=== PATIENT | female | born 1995 | race Two or more races ===

== ENCOUNTER 2016-08-11 00:37 | Emergency (ER) | payer OTHER ==
[2016-08-11 01:32] VITALS: BP 153/85
[2016-08-11] MEDS ORDERED: Ketorolac 60 MG/2 ML SDV IM ONE (01:55)
--- NOTE | 2016-08-11 02:01 | EDM.PDOC ---
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 states she has had pain for several days but has progressively gotten worse over the last couple it is exacerbated at the end of her shift denies any trauma Right Arm Pain Score (Numeric/FACES): 5 - Related Data Allergies Allergy/AdvReac Type Severity Reaction Status Date / Time Penicillins Allergy Cannot Verified 08/11/16 01:32 Remember Home Meds: Home Meds NK [No Known Home Meds] 08/11/16 [History] Past Medical History HEENT History: Reports: Impaired Vision Other HEENT History: tooth extractions Respiratory History: Reports: Asthma 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 Neurological History: Reports: Concussion Psychiatric History: Reports: Depression Dermatologic History: Reports: Other (See Below) Other Dermatologic History: tatoos - Past Surgical History GI Surgical History: Reports: Appendectomy Social & Family History - Tobacco Use Smoking Status *Q: Light Tobacco Smoker Years of Tobacco use: 9 Packs/Tins Daily: 0.5 Used Tobacco, but Quit: No Second Hand Smoke Exposure: Yes - Alcohol Use Days Per Week of Alcohol Use: 2 Number of Drinks Per Day: 7 Total Drinks Per Week: 14 - Recreational Drug Use Recreational Drug Use: No Review of Systems - Review of Systems Review Of Systems: See Below Constitutional: Reports: No Symptoms Respiratory: Reports: No Symptoms Cardiovascular: Reports: No Symptoms GI/Abdominal: Reports: No Symptoms Genitourinary: Reports: No Symptoms Musculoskeletal: Reports: Shoulder Pain, Arm Pain Neurological: Reports: Numbness, Tingling ED EXAM, GENERAL - Physical Exam Exam: See Below Free Text/Narrative:: examination of the right upper extremity appreciate any edema there is no erythema full range of motion of wrist elbow and shoulder she does complain of pain with movement of each joint both tanel's test, Phalen's test flick test are positive, radial pulses 2+ Exam Limited By: No Limitations (and) General Appearance: Alert (a), WD/WN, No Apparent Distress Course - Vital Signs Last Recorded V/S: Last Vital Signs Temp 97.0 F 08/11/16 01:30 Pulse 78 08/11/16 01:30 Resp 16 08/11/16 01:30 BP 153/85 H 08/11/16 01:30 Pulse Ox 95 08/11/16 01:30 - Orders/Labs/Meds Orders: Active Orders 24 hr Category Date Time Status Ketorolac [Toradol] Med 08/11/16 01:55 Once 60 mg IM ONETIME ONE DME for Discharge [COMM] Stat Oth 08/11/16 01:55 Ordered Departure - Departure Time of Disposition: 02:00 Disposition: Home, Self-Care 01 Condition: good Clinical Impression: Repetitive motion injury - Discharge Information Forms: ED Department Discharge Additional Instructions: continue to use nonsterile anti-inflammatories as needed, try the wrist splint for comfort, recommend followup with primary care for reevaluation - My Orders Last 24 Hours: My Active Orders 08/11/16 01:55 Ketorolac [Toradol] 60 mg IM ONETIME ONE DME for Discharge [COMM] Stat - Assessment/Plan Last 24 Hours: My Active Orders 08/11/16 01:55 Ketorolac [Toradol] 60 mg IM ONETIME ONE DME for Discharge [COMM] Stat Plan: Assessment Acuity = acute on chronic Site and laterality = repetitive motion injury Etiology = repetitive work Manifestations = wrist pain concern for development of carpal tunnel syndrome Location of injury = home Lab values = none Plan [she was provided Toradol injection and a wrist splint in the ED her followup with primary care for further evaluation Patient was in agreement with the plan all questions were answered, they were instructed to return to the emergency department or call for worsening symptoms. This note was dictated using [employer] voice recognition software please call with any questions.
== END 2016-08-11 02:20 | disposition home or self-care (01) ==
LOC: JP.ED 00:37
DX: S49.91XA Unspecified injury of right shoulder and upper arm, initial encounter (principal); S69.91XA Unspecified injury of right wrist, hand and finger(s), initial encounter; Z88.0 Allergy status to penicillin; F17.210 Nicotine dependence, cigarettes, uncomplicated; J45.909 Unspecified asthma, uncomplicated; Z90.89 Acquired absence of other organs; X50.3XXA Overexertion from repetitive movements, initial encounter; Y99.0 Civilian activity done for income or pay
CPT/HCPCS: 96372; 99283; J1885

== ENCOUNTER 2018-07-17 16:30 | Emergency (ER) | payer SELFPAY ==
[2018-07-17 17:22] VITALS: BP 132/73
[2018-07-17] MEDS ORDERED: Sodium Chloride 0.9% 1,000 ML IV SCH (18:15)
--- NOTE | 2018-07-17 18:26 | EDM.PDOC ---
ED HPI GENERAL MEDICAL PROBLEM - General Chief Complaint: Abdominal Pain Stated Complaint: LEFT SIDE ABDOMINAL PAIN Time Seen by Provider: 07/17/18 18:00 Source of Information: Reports: Patient, Family History Limitations: Reports: No Limitations - History of Present Illness INITIAL COMMENTS - FREE TEXT/NARRATIVE: 23-year-old female with a history of endometriosis and appendectomy, with laparoscopic procedures several times has had increasing and persistent upper abdominal discomfort especially central and left upper abdomen with a pressure sensation and pain on a continuous basis but worse after eating. She feels like there is a balloon or a mass expanding in the area. No radiation to the back, some nausea but no fever or chills. Some intermittent bowel changes, yesterday she had normal stools today diarrhea. She had an evaluation when it started 3 months ago and her workup was negative but it continues to worsen. She has tried Prilosec daily without effect. The pain is localized to the upper and left abdomen, does not migrate or radiate and is consistent. Onset: Gradual Duration: Chronic (Pain has been worsening for several months) Quality: Reports: Ache, Pressure Associated Symptoms: Reports: Malaise, Nausea/Vomiting. 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 (see below) (Daily omeprazole) Left Middle Abdomen Pain Score (Numeric/FACES): 6 - Related Data Allergies Allergy/AdvReac Type Severity Reaction Status Date / Time Penicillins Allergy Cannot Verified 04/10/18 13:25 Remember Home Meds: Home Meds Albuterol Sulfate [Proventil Hfa] 2 puff INH ASDIRECTED 04/10/18 [History] Omeprazole 20 mg PO DAILY 07/17/18 [History] Past Medical History HEENT History: Reports: Impaired Vision Other HEENT History: tooth extractions Respiratory History: Reports: Asthma [employer]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 Dermatologic History: Reports: Other (See Below) Other Dermatologic History: tatoos - Past Surgical History GI Surgical History: Reports: Appendectomy Female Surgical History: Reports: Other (See Below) Other Female Surgeries/Procedures: 2 laparoscopy for endometriosis Social & Family History - Tobacco Use Smoking Status *Q: Current Every Day Smoker Years of Tobacco use: 11 Packs/Tins Daily: 0.5 - Caffeine Use Caffeine Use: Reports: None - Recreational Drug Use Recreational Drug Use: Yes Drug Use in Last 12 Months: Yes Recreational Drug Type: Reports: Marijuana/Hashish Recreational Drug Use Frequency: Socially ED ROS GENERAL - Review of Systems Review Of Systems: See Below Constitutional: Reports: Malaise. Denies: Fever, Chills, Weight Loss HEENT: Reports: No Symptoms Respiratory: Denies: Shortness of Breath, Cough Cardiovascular: Denies: Chest Pain GI/Abdominal: Reports: Abdominal Pain, Constipation, Diarrhea, Nausea : Reports: No Symptoms Musculoskeletal: Reports: No Symptoms Neurological: Reports: No Symptoms Psychiatric: Reports: No Symptoms Free Text/Narrative/Comment: Long history of endometriosis, she finished Lupron shots last December ED EXAM, GI/ABD - Physical Exam Exam: See Below Exam Limited By: No Limitations General Appearance: Alert, No Apparent Distress, Other (Looks uncomfortable, tearful due to chronicity of the pain) Eyes: Bilateral: Normal Appearance (No jaundice) Throat/Mouth: Normal Inspection Head: Atraumatic, Normocephalic Respiratory/Chest: No Respiratory Distress, Lungs Clear Cardiovascular: Regular Rate, Rhythm GI/Abdominal Exam: Normal Bowel Sounds, Tender (Some tenderness to palpation across the upper abdomen, especially on the left but no significant rebound and just minimal guarding) Extremities: Normal Inspection. No: Pedal Edema Neurological: Alert, Oriented, No Motor/Sensory Deficits Skin Exam: Warm, Dry Course - Vital Signs Last Recorded V/S: Last Vital Signs Temp 97.3 F 07/17/18 17:27 Pulse 95 07/17/18 17:27 Resp 13 07/17/18 17:27 BP 132/73 07/17/18 17:27 Pulse Ox 96 07/17/18 17:27 - Orders/Labs/Meds Labs: Laboratory Tests 07/17/18 07/17/18 07/17/18 Range/Units 18:13 18:13 18:33 WBC 15.8 H (4.5-11.0) K/uL RBC 5.29 (3.30-5.50) M/uL Hgb 16.0 H (12.0-15.0) g/dL Hct 47.1 (36.0-48.0) % MCV 89 (80-98) fL MCH 30 (27-31) pg MCHC 34 (32-36) % Plt Count 272 (150-400) K/uL Neut % (Auto) 68 H (36-66) % Lymph % (Auto) 18 L (24-44) % Jefferson % (Auto) 8 H (2-6) % Eos % (Auto) 5 H (2-4) % Baso % (Auto) 1 (0-1) % Sodium 139 L (140-148) mmol/L Potassium 3.8 (3.6-5.2) mmol/L Chloride 104 (100-108) mmol/L Carbon Dioxide 25 (21-32) mmol/L Anion Gap 13.8 (5.0-14.0) mmol/L BUN 13 (7-18) mg/dL Creatinine 0.9 (0.6-1.0) mg/dL Est Cr Clr Drug Dosing 82.51 mL/min Estimated GFR (MDRD) > 60 (>60) Glucose 98 (74-106) mg/dL Calcium 9.1 (8.5-10.1) mg/dL Total Bilirubin 0.3 D (0.2-1.0) mg/dL AST 22 (15-37) U/L ALT 48 (12-78) U/L Alkaline Phosphatase 84 (46-116) U/L Total Protein 7.4 (6.4-8.2) g/dL Albumin 3.6 (3.4-5.0) g/dL Globulin 3.8 H (2.3-3.5) g/dL Albumin/Globulin Ratio 1.0 L (1.2-2.2) Amylase 40 (25-115) U/L Lipase 97 (73-393) U/L Urine Color Yellow Urine Appearance Cloudy Urine pH 7.0 (4.5-8.0) Ur Specific Gratz 1.015 (1.008-1.030) Urine Protein Negative (NEGATIVE) mg/dL Urine Glucose (UA) Normal (NEGATIVE) mg/dL Urine Ketones Negative (NEGATIVE) mg/dL Urine Occult Blood Trace (NEGATIVE) Urine Nitrite Negative (NEGATIVE) Urine Bilirubin Negative (NEGATIVE) Urine Urobilinogen Normal (NORMAL) mg/dL Ur Leukocyte Esterase Small (NEGATIVE) Urine RBC 0-5 (0-5) Urine WBC 5-10 H (0-5) Ur Epithelial Cells Few Amorphous Sediment Many Urine Bacteria Moderate Urine Mucus Not seen Urine HCG, Qual 07/17/18 Range/Units 18:33 WBC (4.5-11.0) K/uL RBC (3.30-5.50) M/uL Hgb (12.0-15.0) g/dL Hct (36.0-48.0) % MCV (80-98) fL MCH (27-31) pg MCHC (32-36) % Plt Count (150-400) K/uL Neut % (Auto) (36-66) % Lymph % (Auto) (24-44) % Jefferson % (Auto) (2-6) % Eos % (Auto) (2-4) % Baso % (Auto) (0-1) % Sodium (140-148) mmol/L Potassium (3.6-5.2) mmol/L Chloride (100-108) mmol/L Carbon Dioxide (21-32) mmol/L Anion Gap (5.0-14.0) mmol/L BUN (7-18) mg/dL Creatinine (0.6-1.0) mg/dL Est Cr Clr Drug Dosing mL/min Estimated GFR (MDRD) (>60) Glucose (74-106) mg/dL Calcium (8.5-10.1) mg/dL Total Bilirubin (0.2-1.0) mg/dL AST (15-37) U/L ALT (12-78) U/L Alkaline Phosphatase (46-116) U/L Total Protein (6.4-8.2) g/dL Albumin (3.4-5.0) g/dL Globulin (2.3-3.5) g/dL Albumin/Globulin Ratio (1.2-2.2) Amylase (25-115) U/L Lipase (73-393) U/L Urine Color Urine Appearance Urine pH (4.5-8.0) Ur Specific Gratz (1.008-1.030) Urine Protein (NEGATIVE) mg/dL Urine Glucose (UA) (NEGATIVE) mg/dL Urine Ketones (NEGATIVE) mg/dL Urine Occult Blood (NEGATIVE) Urine Nitrite (NEGATIVE) Urine Bilirubin (NEGATIVE) Urine Urobilinogen (NORMAL) mg/dL Ur Leukocyte Esterase (NEGATIVE) Urine RBC (0-5) Urine WBC (0-5) Ur Epithelial Cells Amorphous Sediment Urine Bacteria Urine Mucus Urine HCG, Qual Negative Meds: Medications Discontinued Medications Generic Name Dose Route Start Last Admin Trade Name Freq PRN Reason Stop Dose Admin Sodium Chloride 1,000 mls @ 150 mls/hr 07/17/18 18:15 07/17/18 18:39 Normal Saline IV 150 mls/hr ASDIRECTED CASSY Administration Sodium Chloride 80 mls @ 3 mls/sec 07/17/18 19:15 07/17/18 19:13 Normal Saline IV 3 mls/sec ASDIRECTED CASSY Administration Iopamidol 150 ml 07/17/18 19:15 07/17/18 19:13 Isovue-300 (61%) IV 150 ml . DIRECTED CASSY Administration Sodium Chloride 10 ml 07/17/18 19:04 07/17/18 19:13 Saline Flush FLUSH 10 ml ASDIRECTED PRN Administration Keep Vein Open - Re-Assessments/Exams Free Text/Narrative Re-Assessment/Exam: 07/17/18 18:26 CBC, CMP, amylase and lipase were obtained as well as a urine and urine . A CT with IV contrast will be obtained when labs returned, since most likely intermittent partial bowel obstruction or possibly a resurgence of her endometriosis 07/17/18 19:55 White blood cell count was mildly elevated at 15.8 but all other labs were reassuring. CT the abdomen was normal. 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 I discussed this with the patient and she was agreeable to this. She is going to try a nightly dose of naproxen, and contact Dr. Do in [place]. Departure - Departure Time of Disposition: 20:03 Disposition: Home, Self-Care 01 Condition: Good Clinical Impression: Abdominal pain Qualifiers: Abdominal location: upper abdomen, unspecified Qualified Code(s): R10.10 - Upper abdominal pain, unspecified - Discharge Information Instructions: Abdominal Pain, Adult Referrals: Kadi Alaniz CNM [Primary Care Provider] - Forms: ED Department Discharge Care Plan Goals: Continue your Prilosec, and consider an anti-inflammatory for the next several days, at least at bedtime to see if it will help pain. Call Dr. Do tomorrow to schedule a consultation regarding the discomfort as discussed.
[2018-07-17] MEDS ORDERED: Sodium Chloride 0.9% 10 ML Syringe FLUSH PRN (19:04)
[2018-07-17] MEDS ORDERED: Iopamidol 612 MG/ML 150 ML Bottle IV SCH (19:15)
[2018-07-17] MEDS ORDERED: Sodium Chloride 0.9% 80 ML IV SCH (19:15)
--- NOTE | 2018-07-17 19:46 | CRLCT ---
INDICATION: Upper abdominal pain x 3 months TECHNIQUE: CT abdomen and pelvis acquired with IV contrast. 150 cc Isovue-300 COMPARISON: 04/10/2018 FINDINGS: Lower chest: Unremarkable. Liver: Unremarkable. Spleen: Unremarkable. Pancreas: Unremarkable. Gallbladder and bile ducts: Unremarkable. Kidneys: Unremarkable. Adrenal glands: Unremarkable. GI tract: Unremarkable. Appendix is normal. Vascular structures: Unremarkable. Lymph nodes: Unremarkable. Miscellaneous: Unremarkable. No free air or significant free fluid. Pelvic Organs: Unremarkable. Bones: Unremarkable for age. IMPRESSION: Unremarkable CT of the abdomen and pelvis. No definitive findings to explain the patient`s upper abdominal pain. Dictated by Marin Aguilar MD @ 07/17/2018 7:44:52 PM Please note that all CT scans at this facility use dose modulation, iterative reconstruction, and/or weight-based dosing when appropriate to reduce radiation dose to as low as reasonably achievable. Dictated by: Marin Aguilar MD @ 07/17/2018 19:44:59 (Electronically Signed)
== END 2018-07-17 20:05 | disposition home or self-care (01) ==
LOC: JP.ED 16:30
DX: R10.12 Left upper quadrant pain (principal); F17.210 Nicotine dependence, cigarettes, uncomplicated; Z79.899 Other long term (current) drug therapy; Z88.0 Allergy status to penicillin
CPT/HCPCS: 36415; 74177; 80053; 81001; 81025; 82150; 83690; 85025; 96360; 99284; J7030

== ENCOUNTER 2023-10-28 17:02 | Emergency (ER) | payer BC ==
[2023-10-28 20:49] LABS: BASOPHILS ABSOLUTE AUTO 0.07 K/uL (0.00-0.10); BASOPHILS PERCENT AUTO 0.6 % (0.1-1.3); EOSINOPHILS ABSOLUTE AUTO 0.27 K/uL (0.00-0.40); EOSINOPHILS PERCENT AUTO 2.2 % (0.0-5.4); HEMATOCRIT 41.4 % (34.3-46.0); HEMOGLOBIN 14.1 g/dL (11.2-15.5); IMMATURE GRAN ABSOLUTE AUTO 0.05 K/uL (0.00-0.23); IMMATURE GRAN PERCENT AUTO 0.4 % (0.0-0.7); LYMPHOCYTES ABSOLUTE AUTO 2.64 K/uL (0.8-3.3); LYMPHOCYTES PERCENT AUTO 21.2 % (11.4-47.7); MEAN CORPUSCULAR HEMOGLOBIN 29.8 pg (31.6-35.5); MEAN CORPUSCULAR HGB CONC 34.1 g/dL (31.6-35.5); MEAN CORPUSCULAR VOLUME 87.5 fL (81.4-99.0); MONOCYTES ABSOLUTE AUTO 0.85 K/uL (0.20-0.90); MONOCYTES PERCENT AUTO 6.8 % (3.3-12.6); NEUTROPHILS PERCENT AUTO 68.8 % (40.0-78.1); PLATELET COUNT,PLT 291 K/uL (130-375); RED BLOOD CELL COUNT 4.73 M/uL (3.77-5.24); WHITE BLOOD CELL COUNT,WBC 12.5 K/uL (3.2-11.0)
[2023-10-28 21:12] LABS: ALANINE AMINOTRANSFERASE,ALT 27 U/L (12-78); ALKALINE PHOSPHATASE 78 U/L (46-116); ANION GAP 11.1 mmol/L (5.0-14.0); ASPARTATE AMNIOTRANSFERASE,AST 16 U/L (15-37); BILIRUBIN TOTAL 0.6 mg/dL (0.2-1.0); BLOOD UREA NITROGEN,BUN 10 mg/dL (7-18); CALCIUM 8.8 mg/dL (8.5-10.1); CARBON DIOXIDE,CO2 30 mmol/L (21-32); CHLORIDE,CL 101 mmol/L (100-108); EST CRCL DRUG DOSING (CG) 75.51 mL/min; ESTIMATED GFR 78 mL/min (>60); GLUCOSE RANDOM 91 mg/dL (74-106); POTASSIUM,K 4.1 mmol/L (3.6-5.2); PROTEIN TOTAL,TP 8.2 g/dL (6.4-8.2); SODIUM,NA 138 mmol/L (140-148); TROPONIN I HIGH SENSITIVITY < 4.0 pg/mL (<=60.3)
[2023-10-28 21:45] VITALS: BP 121/72; PULSE 78
== END 2023-10-28 22:20 | disposition home or self-care (01) ==
LOC: JP.ED 17:02
DX: R00.2 Palpitations (principal); Z88.0 Allergy status to penicillin; Z79.890 Hormone replacement therapy; Z79.899 Other long term (current) drug therapy; Z90.49 Acquired absence of other specified parts of digestive tract; Z87.891 Personal history of nicotine dependence
CPT/HCPCS: 36415; 80053; 83605; 84484; 85025; 93005; 99285

== ENCOUNTER 2024-07-26 17:33 | Emergency (ER) | payer BC ==
[2024-07-26] MEDS ORDERED: Morphine 4 MG/ML Syringe IVPUSH PRN (18:15)
[2024-07-26] MEDS ORDERED: Sodium Chloride 0.9% 10 ML Syringe FLUSH PRN (18:15)
[2024-07-26] MEDS ORDERED: Nitroglycerin 0.4 MG Tab.SL SL PRN (18:15)
[2024-07-26 18:31] LABS: BASOPHILS ABSOLUTE AUTO 0.09 K/uL (0.00-0.10); BASOPHILS PERCENT AUTO 0.8 % (0.1-1.3); EOSINOPHILS ABSOLUTE AUTO 0.19 K/uL (0.00-0.40); EOSINOPHILS PERCENT AUTO 1.7 % (0.0-5.4); HEMATOCRIT 42.8 % (34.3-46.0); HEMOGLOBIN 14.1 g/dL (11.2-15.5); IMMATURE GRAN ABSOLUTE AUTO 0.04 K/uL (0.00-0.23); IMMATURE GRAN PERCENT AUTO 0.3 % (0.0-0.7); LYMPHOCYTES ABSOLUTE AUTO 2.38 K/uL (0.8-3.3); LYMPHOCYTES PERCENT AUTO 20.8 % (11.4-47.7); MEAN CORPUSCULAR HGB CONC 32.9 g/dL (31.6-35.5); MEAN CORPUSCULAR VOLUME 88.1 fL (81.4-99.0); MONOCYTES ABSOLUTE AUTO 1.07 K/uL (0.20-0.90); MONOCYTES PERCENT AUTO 9.4 % (3.3-12.6); NEUTROPHILS ABSOLUTE AUTO 7.67 K/uL (1.0-7.6); PLATELET COUNT,PLT 329 K/uL (130-375); RED BLOOD CELL COUNT 4.86 M/uL (3.77-5.24); WHITE BLOOD CELL COUNT,WBC 11.4 K/uL (3.2-11.0)
[2024-07-26] MEDS: Aspirin 81 MG Tab.Chew PO ONE (18:32)
[2024-07-26 18:54] LABS: A/G RATIO 0.8 (1.2-2.2); ALANINE AMINOTRANSFERASE,ALT 45 U/L (12-78); ALBUMIN 3.4 g/dL (3.4-5.0); ALKALINE PHOSPHATASE 88 U/L (46-116); ANION GAP 11.3 mmol/L (5.0-14.0); ASPARTATE AMNIOTRANSFERASE,AST 16 U/L (15-37); BILIRUBIN TOTAL 0.3 mg/dL (0.2-1.0); BLOOD UREA NITROGEN,BUN 11 mg/dL (7-18); CARBON DIOXIDE,CO2 27 mmol/L (21-32); CHLORIDE,CL 103 mmol/L (100-108); CREATININE 0.9 mg/dL (0.6-1.0); EST CRCL DRUG DOSING (CG) 74.92 mL/min; ESTIMATED GFR 88 mL/min (>60); GLUCOSE RANDOM 103 mg/dL (74-106); POTASSIUM,K 3.8 mmol/L (3.6-5.2); PROTEIN TOTAL,TP 7.6 g/dL (6.4-8.2); SODIUM,NA 141 mmol/L (140-148)
[2024-07-26 19:04] LABS: TROPONIN I HIGH SENSITIVITY < 4.0 pg/mL (<=60.3)
[2024-07-26 20:17] VITALS: BP 131/79; PULSE 77
== END 2024-07-26 19:36 | disposition home or self-care (01) ==
LOC: JP.ED 17:33
DX: R07.89 Other chest pain (principal); E03.9 Hypothyroidism, unspecified; J45.909 Unspecified asthma, uncomplicated; Z87.891 Personal history of nicotine dependence; Z79.899 Other long term (current) drug therapy; Z90.49 Acquired absence of other specified parts of digestive tract; Z79.82 Long term (current) use of aspirin; Z91.048 Other nonmedicinal substance allergy status; Z88.0 Allergy status to penicillin
CPT/HCPCS: 36415; 71045; 71045-26; 80053; 84443; 84484; 85025; 99285